=== PATIENT | male | born 1985 | race Two or more races ===

== ENCOUNTER 2025-01-12 21:27 | Emergency (ER) | payer MEDICAID, SELFPAY ==
--- NOTE | 2025-01-12 21:36 | EDNOTE_ITS ---
ED General RME/HPI General Chief complaint: General Adult/Misc Complain Stated complaint: NOT FEELING WELL Time Seen by Provider: 01/12/25 21:32 Arrival date/time: 01/12/25 21:27 RME / HPI RME / HPI narrative: This section includes all my notes and documentations, including HPI, PE, and ED course. Oscar Ramos MD HPI: 39yo male with a history of HTN, fatty liver BIBA from home presents to the ED for multiple complaints. Patient states he was drinking tonight after he received some bad news. Patient noted he's been having hematuria and bloody stools. He states he does have a history of alcohol withdrawal seizures. He reports associated N/V, but does not remember how many episodes. He denies any fever, chills or any other associated symptoms. He is not on any medications. No other complaints reported. ROS: All negative except as documented in HPI. Physical Exam: General: Alert and oriented. Appears intoxicated. Eyes: Conjunctivae and lids clear. ENT: No nasal congestion. Neck: Supple. Heart: RRR. Lungs: No respiratory distress. Good air movement. No rhonchi, wheezing, rales. Abdomen: Soft and nontender. Legs: No clubbing, cyanosis, edema. Skin: Warm and dry. Neuro: Alert and oriented X 3. I reviewed all diagnostic test results. Blood tests and urine tests remarkable for serum alcohol 184.1. At this point, diagnoses include alcohol intoxication. Treatment here included Zofran and Ativan. Significant improvement noted. Based on my best medical judgment, made decision no further evaluation or treatment indicated at this time. Patient understands and agrees to the discharge instructions customized and printed, see below. Discharge Instructions from Dr. Ramos printed for you: 1. After evaluation, you were treated for alcohol intoxication. 2. See a private doctor on 01/13/2025 for recheck and further care. Ask to review all test results and official radiology reports, to make sure you receive all necessary follow-ups and monitoring. Ask for help to quit alcohol and other substances if needed. Ask for help so you can receive all services available to you. 3. Read attached handouts, including alcohol withdrawal. Seek immediate medical care with any concerns. Oscar Ramos MD Related Data Allergies Allergy/AdvReac Type Severity Reaction Status Date / Time No Known Allergies Allergy Verified 01/12/25 21:41 Review of Systems Review of Systems Systems Reviewed: All systems reviewed, normal except as documented ED Exam Narrative Physical exam: As noted in HPI. Course Quality Measures none Orders Category Date Time Status Straight [In and Out Catheter] X1 Care 01/12/25 21:[address] abdomen pelvis wo con Stat Exams 01/12/25 21:39 Taken Alcohol, Blood Medical Stat Lab 01/12/25 21:53 Completed Amylase Stat Lab 01/12/25 21:53 Completed BMP [Basic Metabolic Panel] Stat Lab 01/12/25 21:53 Completed CBC Stat Lab 01/12/25 21:53 Completed Drug Screen,Urine Stat Lab 01/12/25 22:31 Completed Lipase Stat Lab 01/12/25 21:53 Completed Liver Panel Stat Lab 01/12/25 21:53 Completed Magnesium Stat Lab 01/12/25 21:53 Completed PT [Prothrombin Time with INR] Stat Lab 01/12/25 21:53 Completed PTT [Partial Thromboplastin Time] Stat Lab 01/12/25 21:53 Completed LORazepam [Ativan] Med 01/12/25 21:38 Discontinued 2 mg PO X1 ONE Ondansetron Odt [Zofran Odt] Med 01/12/25 21:38 Discontinued 4 mg PO X1 ONE Vital Signs Vital signs: Vital Signs Temperature 98.5 F 01/12/25 21:47 Pulse Rate 100 01/12/25 21:47 Respiratory Rate 18 01/12/25 21:47 Blood Pressure 130/90 H 01/12/25 21:47 Pulse Oximetry (%) 99 01/12/25 21:47 Oxygen Delivery Method Room Air 01/12/25 21:47 [facility] Patient data External records reviewed:: [facility] previous records (Per chart review, patient has no previous ED visits or admissions to this facility.) Clinical information provided by:: patient and EMS Social determinants that could affect healthcare access:: alcohol use Patient has the following chronic illnesses:: HTN, fatty liver How is presenting disease/condition affected by chronic disease/condition?: u neffected by Evaluation data The following diagnostics were reviewed and interpreted by me:: lab results and radiology exam(s) Lab and/or radiology exams considered but not ordered:: none Interpretation Summary: Alcohol intoxication Medications Medications considered but not ordered:: none Medication administrations:: Medication Administration History Discontinued Medications Lorazepam (Lorazepam 0.5 Mg Tablet) 2 mg PO X1 ONE Stop: 01/12/25 21:39 Last Admin: 01/12/25 22:14 Dose: 2 mg Documented By: CVL Ondansetron HCl (Ondansetron Odt 4 Mg Tabrap) 4 mg PO X1 ONE; Protocol Stop: 01/12/25 21:39 Last Admin: 01/12/25 22:14 Dose: 4 mg Documented By: CVL Ativan, Jose Consultations Consultation(s) initiated? (list below): No Diagnosis Differential Diagnosis ED Complaint MDM: Alcohol withdrawal, alcohol intoxication, dehydration Most likely diagnosis given after review of the tests above:: Alcohol intoxication Admission Indicated Admission indicated?: not indicated Explain why admission is indicated or not indicated:: No criteria for admission. Admission Request Was there a request for admission?: No Disposition Plan Disposition Plan: Discharge Discharge Attestation Discharge Attestation: The patient and all family members were given an opportunity to ask questions and understood the discharge instructions. Discharge instructions specifically effects, indications for sooner follow up or return to the emergency department, and the expected course of current diagnosis. Patient condition: Stable Medical Decision Making MDM Narrative MDM Narrative: Scribe Attestation: 01/12/25 Anisha Cerna am scribing for and in the presence of Dr. Ramos. Differential Diagnosis Differential Diagnosis: Alcohol withdrawal, alcohol intoxication, dehydration Lab Data 01/12/25 21:53 01/12/25 21:53 Labs: Lab Results 01/12/25 01/12/25 Range/Units 21:53 22:31 WBC 7.8 (3.8-10.6) Thou/mm3 RBC 5.69 (4.50-5.90) Miln/mm3 Hgb 15.9 (13.5-16.0) g/dL Hct 45.6 (41.0-53.0) % MCV 80 (80-100) fL MCH 27.9 (25.0-35.0) pg MCHC 34.9 (31.0-37.0) g/dl RDW Std Deviation 37.2 (35.1-43.9) fL Plt Count 315 (140-440) Thou/mm3 Neut % (Auto) 67 (37-80) % Lymph % (Auto) 26 (10-50) % [place] % (Auto) 6 (0-12) % Eos % (Auto) 1 (0-10) % Baso % (Auto) 1 (0-2.5) % Neut # (Auto) 5.2 (1.8-7.7) Thou/mm3 Lymph # (Auto) 2.0 (1.0-4.8) Thou/mm3 [place] # (Auto) 0.5 (0.0-0.8) Thou/mm3 Eos # (Auto) 0.1 (0.0-0.5) Thou/mm3 Baso # (Auto) 0.0 (0.0-0.2) Thou/mm3 Immature Gran # (Auto) 0.02 H (0.00-0.00) Thou/mm3 Absolute Nucleated RBC 0.00 (0.00-0.00) Thou/mm3 Immature Gran % 0 (0-0) % Nucleated RBC % 0 (0) /100 WBC PT 11.4 (9.0-12.2) Seconds INR 1.0 (0.9-1.3) APTT 25.9 (22.0-36.0) Seconds Sodium 141 (136-145) mMol/L Potassium 4.1 (3.4-5.1) mMol/L Chloride 107 (98-107) mMol/L Carbon Dioxide 25.3 (20.0-31.0) mMol/L Anion Gap 9 (7-16) BUN 6 L (9-23) mg/dL Creatinine 0.7 (0.6-1.3) mg/dL Estim Creat Clear Calc 216.3 (>60) mL/min eGFR > 60 (60 - ) See Note BUN/Creatinine Ratio 9 L (12-20) Ratio Glucose 132 H (74-106) mg/dL Calculated Osmolality 280 (275-295) Calcium 9.2 (8.3-10.6) mg/dL Magnesium 2.0 (1.6-2.6) mg/dL Total Bilirubin 0.7 (0.3-1.2) mg/dL Direct Bilirubin 0.2 (0.0-0.3) mg/dL AST 57 H (0-34) U/L ALT 72 H (10-49) U/L Alkaline Phosphatase 87 (46-116) U/L Total Protein 7.9 (5.7-8.2) gm/dL Albumin 4.6 (3.5-5.0) gm/dL Amylase 49 (30-118) U/L Lipase 36 (12-53) U/L Urine Opiates Screen Negative (Negative) Urine Fentanyl Screen Negative (Negative) Ur Barbiturates Screen Negative (Negative) U Amphetamin/Meth Scrn Negative (Negative) U Benzodiazepines Scrn Negative (Negative) U Cocaine Metab Screen Negative (Negative) U Marijuana (THC) Screen Negative (Negative) Ethyl Alcohol 184.1 H (0-10.0) mg/dL Discharge Plan Plan Patient Disposition: HOME (Self Care) Prescriptions/Referrals Referrals: No Primary/Family,Physician [Primary Care Provider] - In 1 week Problem List Clinical Impression: Alcohol intoxication Patient/Caregiver Discharge Instructions Discharge Activity: activity as tolerated Education Materials: ED Alcohol Withdrawal, ED Alcohol Intoxication Additional Instructions: Discharge Instructions from Dr. Ramos printed for you: 1. After evaluation, you were treated for alcohol intoxication. 2. See a private doctor on 01/13/2025 for recheck and further care. Ask to review all test results and official radiology reports, to make sure you receive all necessary follow-ups and monitoring. Ask for help to quit alcohol and other substances if needed. Ask for help so you can receive all services available to you. 3. Read attached handouts, including alcohol withdrawal. Seek immediate medical care with any concerns. Print Language: Lithuanian Stand Alone Forms: Eva Award Info., Patient Portal Info Letter
--- NOTE | 2025-01-12 21:39 | XR_ITS ---
Examination: CT abdomen and pelvis without contrast. Coronal 3-D reconstructions. Sagittal 2-D reconstructions. Date and time of exam:January 12, 2020 5:11 PM Indications: Blood in stools beginning 3 days ago CTDI: vol (mGy): 21.1 DLP: (mGycm): 1509 Technique: Axial images of the abdomen have been obtained, 3 mm slice thickness Intravenous contrast material has not been administered. Low dose protocols were performed. One or more of the following dose reduction techniques were used; automated exposure control, adjustment of the mA and/or KV according to patient size, use of iterative reconstruction technique. Findings: Small pericardial effusion Liver is mildly irregular in contour No focal liver or splenic lesion No pancreatic mass Diffusely mildly dense gallbladder No renal or ureteral calculi Mild to moderate bilateral renal parenchymal scar formation Aorta normal size No bowel obstruction Normal appendix No diverticulitis Intact urinary bladder No prostatomegaly Tiny fat-containing umbilical hernias Impression: Suspect primary hepatocellular disease Recommend hepatobiliary sonography follow-up to exclude gallbladder sludge, small stones Mild to moderate bilateral renal parenchymal scar formation, no renal or ureteral calculi, no hydronephrosis Normal appendix No bowel obstruction diverticulitis or free air No nonspecific colitis pattern
[2025-01-12 21:47] VITALS: BP 130/90; PULSE 100; RESP 18; TEMP 36.9; O2SAT 99
[2025-01-12 22:06] LABS: Basophils % (Auto) 1 % (0-2.5); Eosinophils # (Auto) 0.1 Thou/mm3 (0.0-0.5); Eosinophils % (Auto) 1 % (0-10); Hematocrit 45.6 % (41.0-53.0); Hemoglobin 15.9 g/dL (13.5-16.0); Immature Granulocytes % (Auto) 0 % (0-0); Immature Granulocytes Auto 0.02 Thou/mm3 (0.00-0.00); Lymphocytes % (Auto) 26 % (10-50); Mean Corpuscular HGB Conc 34.9 g/dl (31.0-37.0); Mean Corpuscular Hemoglobin 27.9 pg (25.0-35.0); Mean Corpuscular Volume 80 fL (80-100); Monocytes # (Auto) 0.5 Thou/mm3 (0.0-0.8); Monocytes % (Auto) 6 % (0-12); Neutrophils # (Auto) 5.2 Thou/mm3 (1.8-7.7); Neutrophils % (Auto) 67 % (37-80); Nucleated Red Blood Cell % 0 /100 WBC (0); Platelet Count 315 Thou/mm3 (140-440); RDW Standard Deviation 37.2 fL (35.1-43.9); Red Blood Count 5.69 Miln/mm3 (4.50-5.90); White Blood Count 7.8 Thou/mm3 (3.8-10.6)
[2025-01-12] MEDS: ONDANSETRON ODT 4 MG TABRAP PO (22:14)
[2025-01-12] MEDS: LORazepam 0.5 MG TABLET 2 MG PO (22:14)
[2025-01-12 22:19] LABS: Partial Thromboplastin Time 25.9 Seconds (22.0-36.0); Prothrombin Time 11.4 Seconds (9.0-12.2)
[2025-01-12 22:51] LABS: Alanine Aminotransferase 72 U/L (10-49); Albumin, Serum 4.6 gm/dL (3.5-5.0); Alcohol, Blood Medical 184.1 mg/dL (0-10.0); Alkaline Phosphatase 87 U/L (46-116); Anion Gap 9 (7-16); Aspartate Amino Transferase 57 U/L (0-34); BUN/Creatinine Ratio 9 Ratio (12-20); Bilirubin,Direct 0.2 mg/dL (0.0-0.3); Bilirubin,Total 0.7 mg/dL (0.3-1.2); Blood Urea Nitrogen 6 mg/dL (9-23); Calcium 9.2 mg/dL (8.3-10.6); Carbon Dioxide 25.3 mMol/L (20.0-31.0); Chloride 107 mMol/L (98-107); Creatinine (Component) 0.7 mg/dL (0.6-1.3); Estimated Creatinine Clearance 216.3 mL/min (>60); Glucose 132 mg/dL (74-106); Lipase 36 U/L (12-53); Osmolality,Calculated 280 (275-295); Potassium 4.1 mMol/L (3.4-5.1); Sodium 141 mMol/L (136-145); Total Protein 7.9 gm/dL (5.7-8.2); eGFR > 60 See Note
[2025-01-12 23:16] VITALS: RESP 18
[2025-01-12 23:16] LABS: Amphetamine/Methamp Scrn,U Negative (Negative); Barbiturate Screen,Urine Negative (Negative); Benzodiazepines Screen,Urine Negative (Negative); Benzoylecgonine Screen, Ur Negative (Negative); Fentanyl Screen,Urine Negative (Negative); Opiate Screen,Urine Negative (Negative); THC Screen,Urine Negative (Negative)
[2025-01-12 23:30] LABS: Amylase 49 U/L (30-118)
== END 2025-01-12 23:17 | disposition home or self-care (01) ==
PROVIDERS: Emergency Provider Emergency Medicine
DX: F10.129 Alcohol abuse with intoxication, unspecified (principal); K76.0 Fatty (change of) liver, not elsewhere classified; I10 Essential (primary) hypertension
CPT/HCPCS: 36415; 74176; 80048; 80076; 80307; 80320; 82150; 83690; 83735; 85025; 85610; 85730; 99284; Q0162; A9270; G0480